=== PATIENT | female | born 1955 | race Caucasian/White ===

== ENCOUNTER → 2020-02-08 07:38 | Outpatient (CLI) | payer MEDICARE, OTHER ==
[2013-11-08 18:30] VITALS: BMI 42.5
[~2020-02-08 07:38] MED LIST: BUMEX 1 MG TAB1 MG PO; COVERA-HS240 MG PO; GLUCOPHAGE500 MG PO; PRAVACHOL40 MG PO; PREVACID30 MG PO; SYNTHROID125 MCG PO
[2020-02-08 08:19] LABS: ALBUMIN 3.6 g/dL (3.4-5.0); BILIRUBIN - DIRECT 0.12 mg/dL (0.00-0.30); BILIRUBIN - INDIRECT 0.3 mg/dL (0.00-1.00); BILIRUBIN - TOTAL 0.42 mg/dL (0.2-1.3); PROTEIN - SERUM 6.9 g/dL (6.4-8.2)
== END | disposition home or self-care (01) ==
LOC: D.LAB 07:38 → D.US 08:30
PROVIDERS: ATTEND Internal Medicine Gastroenterology
DX: K74.0 Hepatic fibrosis (principal)